=== PATIENT | female | born 1995 | race Caucasian/White ===

== ENCOUNTER 2018-02-05 18:41 | Emergency (ER) | payer BC ==
[~2018-02-05] VITALS: Ht 165.1 cm; Wt 98.0 kg
[2018-02-05 18:45] VITALS: Ht 165.1 cm; Wt 98.0 kg
[2018-02-05 22:11] VITALS: BP 115/68
== END 2018-02-05 22:11 | disposition home or self-care (01) ==
LOC: ED 18:41
DX: O26.891 Other specified pregnancy related conditions, first trimester (principal); R51 Headache; M79.7 Fibromyalgia; F32.9 Major depressive disorder, single episode, unspecified; E66.9 Obesity, unspecified; Z68.35 Body mass index [BMI] 35.0-35.9, adult; Z88.5 Allergy status to narcotic agent; Z88.1 Allergy status to other antibiotic agents; Z3A.00 Weeks of gestation of pregnancy not specified

== ENCOUNTER 2018-08-01 21:08 | Emergency (ER) | payer MEDICAID ==
[~2018-08-01] VITALS: Ht 162.6 cm; Wt 100.2 kg
[2018-08-01 21:27] VITALS: Ht 162.6 cm; Wt 100.2 kg
[2018-08-02 00:16] LABS: BASOPHIL % 0.2 % (0-2); PLATELET COUNT 251 x10^3mcL (130-400); RED CELL DISTRIBUTION WIDTH 13.4 % (11.5-14.5)
[2018-08-02 00:26] LABS: CALCIUM 8.2 mg/dL (8.5-10.1); CARBON DIOXIDE 22.8 mmol/L (21-32); CHLORIDE SERUM 107 mmol/L (98-107); CREATININE SERUM 0.5 mg/dL (0.6-1.0); GFR1 > 60 mL/min; GLUCOSE SERUM 103 mg/dL (74-106); POTASSIUM SERUM 3.5 mmol/L (3.5-5.1); SODIUM SERUM 141 mmol/L (136-145)
[2018-08-02 00:30] LABS: ALKALINE PHOSPHATASE 213 U/L (46-116); ALT/SGPT 25 U/L (14-59); AST/SGOT 6 U/L (15-37); BILIRUBIN TOTAL 0.3 mg/dL (0.20-1.00); LIPASE 62 IU/L (73-393); TOTAL PROTEIN, SERUM 6.2 g/dL (6.4-8.2)
[2018-08-02 00:37] LABS: ALBUMIN 2.6 g/dL (3.4-5.0)
[2018-08-02 02:39] VITALS: BP 105/58
== END 2018-08-02 02:39 | disposition home or self-care (01) ==
LOC: ED 21:08
PROVIDERS: Emergency Medicine
DX: O26.893 Other specified pregnancy related conditions, third trimester (principal); O99.343 Other mental disorders complicating pregnancy, third trimester; R10.11 Right upper quadrant pain; M79.7 Fibromyalgia; F32.9 Major depressive disorder, single episode, unspecified; Z3A.32 32 weeks gestation of pregnancy; Z88.1 Allergy status to other antibiotic agents; Z88.5 Allergy status to narcotic agent
CPT/HCPCS: 36415; Q0092